=== PATIENT | female | born 1990 ===

== ENCOUNTER 2018-01-30 01:12 | Emergency (ER) | payer MEDICAID, OTHER ==
[2018-01-30 01:37] VITALS: BP 131/71; PULSE 122; TEMP 98.2; O2SAT 98
--- NOTE | 2018-01-30 01:51 | ED PDOC ---
HPI: Abdomen Time Seen by Provider: 01/30/18 01:12 Chief Complaint (Nursing): Shortness Of Breath Chief Complaint (Provider): Shortness Of Breath History Per: Patient History/Exam Limitations: no limitations Onset/Duration Of Symptoms: Days (x3) Current Symptoms Are (Timing): Still Present Additional Complaint(s): 27 year old female, status post hysterectomy on 01/28/18, presents to the emergency department with a complaint of worsening abdominal distention associated with difficulty breath on deep breathing. She denies having any bowel movements prior to surgery, along with no fever, chills, chest pain, leg pain or swelling. Patient is currently on Percocet for pain. PMD: none provided Past Medical History Reviewed: Historical Data, Nursing Documentation, Vital Signs Vital Signs: Last Vital Signs Temp 98.2 F 01/30/18 01:34 Pulse 122 H 01/30/18 01:34 Resp 28 H 01/30/18 01:45 BP 131/71 01/30/18 01:34 Pulse Ox 98 01/30/18 02:03 - Medical History PMH: Malignancy (cervical cancer) - Surgical History Surgical History: Denies: No Surg Hx Other surgeries: hysterectomy - Family History Family History: States: Unknown Family Hx - Social History Current smoker - smoking cessation education provided: No Alcohol: None Drugs: Denies - Home Medications Home Medications: Ambulatory Orders Medication Instructions Recorded Docusate Sodium [Dulcolax Stool 100 mg PO BID #20 capsule 01/30/18 Softener] - Allergies Allergies/Adverse Reactions: Allergies Allergy/AdvReac Type Severity Reaction Status Date / Time No Known Allergies Allergy Verified 01/30/18 01:40 Review of Systems ROS Statement: Except As Marked, All Systems Reviewed And Found Negative Constitutional: Negative for: Fever, Chills Cardiovascular: Negative for: Chest Pain Respiratory: Positive for: Shortness of Breath (with deep breathing) Gastrointestinal: Positive for: Abdominal Pain (with distention) Musculoskeletal: Negative for: Leg Pain (or swelling) Physical Exam - Reviewed Nursing Documentation Reviewed: Yes Vital Signs Reviewed: Yes - Physical Exam Appears: Positive for: Uncomfortable Head Exam: Positive for: ATRAUMATIC, NORMAL INSPECTION, NORMOCEPHALIC Skin: Positive for: Normal Color Eye Exam: Positive for: Normal appearance Neck: Positive for: Normal Cardiovascular/Chest: Positive for: Regular Rate, Rhythm Respiratory: Positive for: Normal Breath Sounds. Negative for: Wheezing, Respiratory Distress Gastrointestinal/Abdominal: Positive for: Soft, Tenderness (diffuse minimally), Other (surgical site: clean/intact without drainage or erythema) Extremity: Positive for: Normal ROM (upper/lower) Neurologic/Psych: Positive for: Alert, Oriented - ECG O2 Sat by Pulse Oximetry: 98 (RA) Pulse Ox Interpretation: Normal Medical Decision Making Medical Decision Making: Initial Impression: A/P: Hx of recent hysterectomy for cervical cancer with ABD pain and SOB. Likely constipation causing pressure on diaphragm and shortness of breath. --Will R/O PE with D Dimer. --Enulose 20gm PO/Fleet enema 135ml UT/BMP/CBC additionally ordered. Initial Plan: * BMP * CBC * D Dimer * Enulose 20gm PO * Fleet enema 135ml UT 230AM Patient had large BM and reports feeling "100% better" after medications. Asking to skip bloodwork now that she is asymptomatic. Advised patient to followup as outpatient and continue taking stool softeners as long as she's taking percocet. return precautions discussed. Scribe Attestation: Documented by Keila Sumner, acting as a scribe for Ashish Cross MD. Provider Scribe Attestation: All medical record entries made by the Scribe were at my direction and personally dictated by me. I have reviewed the chart and agree that the record accurately reflects my personal performance of the history, physical exam, medical decision making, and the department course for this patient. I have also personally directed, reviewed, and agree with the discharge instructions and disposition. Disposition - Clinical Impression Clinical Impression: Constipation - Disposition Referrals: [facility] [Outside] Disposition: Routine/Home Disposition Time: 02:40 Condition: IMPROVED Prescriptions: Docusate Sodium [Dulcolax Stool Softener] 100 mg PO BID #20 capsule Instructions: Constipation in Adults Forms: [facility] (Lithuanian)
[2018-01-30 02:27] VITALS: RESP 28
== END 2018-01-30 02:45 | disposition home or self-care (01) ==
LOC: H.ER 01:12
DX: K59.00 Constipation, unspecified (principal); Z90.710 Acquired absence of both cervix and uterus; Z85.41 Personal history of malignant neoplasm of cervix uteri